=== PATIENT | male | born 1955 | race African-American/Black ===

== ENCOUNTER 2018-10-06 07:57 | Inpatient (IN) | payer OTHER ==
[~2018-10-06] VITALS: Ht 147.3 cm; Wt 46.3 kg
--- NOTE | ~2018-10-06 | EEG ---
[facility] [place] [address] ELECTROENCEPHALOGRAM Name: REID CISSE Room #: 457-P [facility] IN M.R.#: [id number] Admission: 10/06/18 Attend Phys: Chuy Gray Discharge: 10/07/18 Date of : 57 Report #: [id number] THIS REPORT FOR: //name// CC: Chuy MENDES DATE OF SERVICE: 10/06/2018 This patient is being evaluated for altered mental status. EEG was done by placing the electrode by standard 10-20 system of electrode placement. Both referential and sequential montages were used for recording. Background activity in this patient's EEG is about 8 Hz and 30 microvolt. Photic stimulation is unremarkable. IMPRESSION: This patient's EEG is intermixed with moderate amount of slowing on both sides. That is a nonspecific abnormality, which can occur with encephalopathy, effect of psychotropic medication, dementia, etc. Clinical correlation is recommended. <ELECTRONICALLY SIGNED> By: Hong Colby MD 10/09/18 1054 [id number] 1543 Hong Colby MD /nt
--- NOTE | ~2018-10-06 | HC ---
[facility] [place] [address] CONSULTATION Name: REID CISSE Room #: 457-P [facility] IN M.R.#: [id number] Admission: 10/06/18 Attend Phys: Chuy Cueva Discharge: Date of : 57 Report #: [id number] THIS REPORT FOR: //name// CC: Chuy MENDES DATE OF SERVICE: 10/06/2018 HISTORY OF PRESENT ILLNESS: The patient is a 63-year-old male who presented to the Emergency Room with altered mental status. At the time of his arrival to the Emergency Room, the patient was hypotensive and has remained hypotensive during the day. The patient's brother and sister and caregiver were in the room. Typically, the patient speaks and is up walking around. Earlier today, he was more conversant, but is now sleeping. I explained to his family that the MRI of the brain was unremarkable and showed no evidence of a new stroke. 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 PAST MEDICAL HISTORY: Stroke, hypertension, hyperlipidemia. PAST SURGICAL HISTORY: Unremarkable. MEDICATIONS AT HOME: Aspirin 325 mg daily, atorvastatin 10 mg at bedtime, hydrochlorothiazide 25 mg daily, metoprolol 25 mg at bedtime, quinapril 20 mg daily, vitamin D2 50,000 units monthly, Haldol 0.25 mg daily. He had been on 0.5 mg twice a day, Tylenol p.r.n., Colace p.r.n., magnesium p.r.n., dextromethorphan cough syrup p.r.n. ALLERGIES: None. VITAL SIGNS: Temperature is 36.4, pulse rate 59, respiratory rate 12, blood pressure 85/51, bedside pulse oximetry 95% on room air. LABORATORY WORK: White blood cell count 4.2, hemoglobin 14.3, hematocrit 42.4, platelet count 163,000. INR 1. Urinalysis, trace protein. Chemistry: Sodium 141, potassium 3.8, chloride 104, carbon dioxide 31, BUN 27, creatinine 1.1, GFR 68, glucose 109, calcium 9.3. Toxicology screen negative. IMAGING: MRI of the head demonstrates an old cerebellar infarct. MRA of the head and neck are unremarkable. NEUROLOGIC: The patient is currently asleep. I will examine him tomorrow. IMPRESSION: Most likely, this patient has an encephalopathy related to medication effect. Hydrochlorothiazide and quinapril has been discontinued. He is now on metoprolol only. [address] [address] CONSULTATION Name: REID CISSE Room #: 457-P [facility] IN .R.#: [id number] Admission: 10/06/18 Attend Phys: Chuy Cueva Discharge: Date of : 57 Report #: [id number] I was able to explain to his family that there is no evidence of a new stroke. Only the old left cerebellar infarct was seen. At this point, I will reevaluate him tomorrow and suspect that he will be feeling better. I thank you for your kind referral of the patient. <ELECTRONICALLY SIGNED> By: Juliana Kan DO 10/07/18 0857 1745 1805 Juliana Kan DO /nt
--- NOTE | ~2018-10-06 | EKG ---
[place] [address] [facility] [place] [address] ELECTROCARDIOGRAM REPORT Name: REID CISSE Room #: 457-P [facility] IN M.R.#: [id number] Admission: 10/06/18 Attend Phys: Chuy Cueva Discharge: Date of : 57 Report #: [id number] THIS REPORT FOR: //name// ED Test Date: 2018-10-06 Test Time: 08:26:06 Pat Name: REID CISSE Department: Room: [facility] Gender: M Second Baker: REJI : 1955 Requested By: Alyssa Valencia Order Number: [id number] MD: Jonathan Russo Measurements Intervals [place] Rate: 64 P: 39 LA: 165 QRS: 44 QRSD: 103 T: 21 QT: 404 QTc: 417 Interpretive Statements Sinus rhythm Probable left ventricular hypertrophy ST elevation, consider early repolarization No previous ECG available for comparison Electronically Signed On 10-06-2018 16:35:26 SYSTEMS TESTER by Jonathan Russo [email or web address] <ELECTRONICALLY SIGNED> By: Jonathan Russo MD, [facility] 10/06/18 1635 0826 08 Jonathan Russo MD, FACC /EPI
[2018-10-06 07:57] VITALS: BP 89/60
[2018-10-06] MEDS ORDERED: ASA5UEC PO (08:14)
[2018-10-06 08:53] LABS: URINE BILIRUBIN NEGATIVE (Negative); URINE BLOOD NEGATIVE (Negative); URINE CLARITY CLEAR; URINE COLOR YELLOW; URINE GLUCOSE-RANDOM* NEGATIVE (Negative); URINE KETONES NEGATIVE (Negative); URINE LEUKOCYTES NEGATIVE (Negative); URINE NITRITE NEGATIVE (Negative); URINE PROTEIN (DIPSTICK) TRACE (Negative); URINE SPECIFIC GRAVITY >= 1.030 (1.005-1.035)
[2018-10-06 08:59] LABS: AMP/METHAMP Negative (Negative); BARBITURATES Negative (Negative); BENZODIAZEPINES Negative (Negative); COCAINE Negative (Negative); METHADONE Negative (Negative); OPIATES Negative (Negative); PCP Negative (Negative)
[2018-10-06 09:10] LABS: ABSOLUTE NEUTROPHILS 2.9 thou/uL (1.4-8.2); BASOPHILS 0.4 % (0.0-2.0); EOSINOPHILS 2.8 % (0.0-3.0); HEMATOCRIT 42.4 % (42.0-52.0); HEMOGLOBIN 14.3 gm/dL (14.0-18.0); LYMPHOCYTES 19.8 % (24.0-44.0); MCH 31.3 pg (26.0-34.0); MCHC 33.7 g/dL (28.0-37.0); MCV 92.9 fL (80.0-100.0); MONOCYTES 8.1 % (1.0-8.0); PLATELET COUNT 163 thou/uL (150-400); POLYS 68.9 % (36.0-66.0); RBC 4.57 mil/uL (4.50-6.00); RDW 13.1 % (10.5-14.5); WBC 4.2 thou/uL (4.0-11.0)
[2018-10-06 09:24] LABS: CALCIUM 9.3 mg/dL (8.5-10.1); CREATININE 1.1 mg/dL (0.7-1.3); POTASSIUM 3.8 mmol/L (3.5-5.1)
[2018-10-06 09:25] LABS: PROTIME 10.3 Seconds (9.3-11.4)
[2018-10-06] MEDS ORDERED: HYDROCHLOROTHIA25 M2 PO (09:27)
[2018-10-06] MEDS ORDERED: LIPITOR10 MG PO (09:27)
[2018-10-06] MEDS ORDERED: TOPROL XL25 MG PO (09:28)
[2018-10-06] MEDS ORDERED: QUINAPRIL HCL20 MG PO (09:28)
[2018-10-06] MEDS ORDERED: VITAMIN D250000 UNIT PO (09:29)
[2018-10-06] MEDS ORDERED: TYLENOL325 MG PO (09:30)
[2018-10-06] MEDS ORDERED: HALDOL 0.5 MG0.5 MG PO (09:30)
[2018-10-06] MEDS ORDERED: COLACE100 MG PO (09:30)
[2018-10-06] MEDS ORDERED: MILK OF MA2400 MG/10 PO (09:31)
[2018-10-06] MEDS ORDERED: CORICIDIN HBP1 EACH PO (09:33)
[2018-10-06 10:38] VITALS: BP 94/60
[2018-10-06 15:29] VITALS: BP 85/51
[2018-10-06 19:09] VITALS: BP 71/48
[2018-10-06 19:10] VITALS: BP 76/48
[2018-10-07 00:12] VITALS: BP 90/47
[2018-10-07 04:46] LABS: CHOLESTEROL 124 mg/dL (<200); HDL CHOLESTEROL 36 mg/dL (>40); LDL CHOLESTEROL 78 mg/dL (<100); TC:HDL 3.4 Ratio (Not establshd); TRIGLYCERIDE 54 mg/dL (<150); VLDL 11 mg/dL (<40)
[2018-10-07 04:49] LABS: SERUM ASSESSMENT Clear
[2018-10-07 05:15] VITALS: BP 105/70
[2018-10-07 07:12] LABS: GLYCOHEMOGLOBIN (HGB A1C) 5.5 % (4.8-5.6)
[2018-10-07 07:29] VITALS: BP 129/79
== END 2018-10-07 14:36 | disposition home or self-care (01) | DRG 314 ==
LOC: ER 07:57 → EROBS 10:22 → 4W 10:22 → EROBS 11:39 → 4W 13:49 → ENTRNSPT 10-07 12:50 → EDTRNSPTSTS 10-07 12:53 → 4W 10-07 14:36
PROVIDERS: Emergency Medicine; Nurse Practitioner
DX: I95.9 Hypotension, unspecified (principal); E43 Unspecified severe protein-calorie malnutrition; G93.40 Encephalopathy, unspecified; I69.351 Hemiplegia and hemiparesis following cerebral infarction affecting right dominant side; I10 Essential (primary) hypertension; E78.5 Hyperlipidemia, unspecified; F41.9 Anxiety disorder, unspecified; F01.50 Vascular dementia, unspecified severity, without behavioral disturbance, psychotic disturbance, mood disturbance, and anxiety; K02.9 Dental caries, unspecified; Z79.82 Long term (current) use of aspirin; Z79.899 Other long term (current) drug therapy
CPT/HCPCS: 10045